=== PATIENT | female | born 1970 | race Caucasian/White ===

== ENCOUNTER 2017-03-15 10:35 | Emergency (ER) | payer MEDICARE, OTHER ==
[~2017-03-15] VITALS: Ht 170.2 cm; Wt 90.7 kg
[~2017-03-15 10:35] MED LIST: AMIT50; DIVA250ER; HYDACE5 PO; OLAN10; PROP20; RANI150; RISP3; SERT50; SULTRIDS PO; ZIPR40
[2017-03-15] MEDS ORDERED: HYDPAM100 PO (10:53)
[2017-03-15] MEDS ORDERED: Triamcinolone A15 G3 TOP (11:19)
== END 2017-03-15 11:31 | disposition home or self-care (01) ==
LOC: ER 10:35
DX: L25.9 Unspecified contact dermatitis, unspecified cause (principal); J45.909 Unspecified asthma, uncomplicated; F31.9 Bipolar disorder, unspecified; Z88.8 Allergy status to other drugs, medicaments and biological substances; Z79.899 Other long term (current) drug therapy; Z86.19 Personal history of other infectious and parasitic diseases
CPT/HCPCS: 99282

== ENCOUNTER 2017-05-25 05:23 | Emergency (ER) | payer MEDICARE, OTHER ==
[~2017-05-25] VITALS: Ht 170.2 cm; Wt 80.3 kg
[~2017-05-25 05:23] MED LIST changes: +HYDPAM100 PO; +Triamcinolone A15 G3 TOP
[2017-05-25] MEDS ORDERED: Ultram50 MG PO (06:37)
[2017-05-25] MEDS ORDERED: IBUP800 PO (06:37)
[2017-05-25] MEDS ORDERED: Nicoderm Cq1 EAC1 TD (06:43)
== END 2017-05-25 07:06 | disposition home or self-care (01) ==
LOC: ER 05:23
DX: R07.89 Other chest pain (principal); J45.909 Unspecified asthma, uncomplicated; F17.200 Nicotine dependence, unspecified, uncomplicated; Z88.8 Allergy status to other drugs, medicaments and biological substances; Z86.19 Personal history of other infectious and parasitic diseases
CPT/HCPCS: 71046; 99283

== ENCOUNTER → 2018-03-22 | Outpatient (CLI) | payer MEDICARE, OTHER ==
[~2018-03-22] MED LIST changes: +IBUP800 PO; +Nicoderm Cq1 EAC1 TD; +Ultram50 MG PO
[2018-03-22 13:05] LABS: U Amphetamine Screen Not Detected; U Barbituate Screen Not Detected; U Benzodiazapine Screen Not Detected; U Buprenorphine Screen Not Detected; U Cannabinoids Screen DETECTED; U Cocaine Screen Not Detected; U Methadone Screen Not Detected; U Methamphetamine Screen Not Detected; U Opiates Screen Not Detected; U Oxycodone Screen Not Detected; U Phencyclidine Screen Not Detected; U Propoxyphene Screen Not Detected
== END ==
LOC: LAB SHORT 12:26 → LAB 12:26
PROVIDERS: Nurse Practitioner Family
DX: Z51.81 Encounter for therapeutic drug level monitoring (principal); Z79.899 Other long term (current) drug therapy

== ENCOUNTER → 2018-05-21 | Outpatient (CLI) | payer MEDICARE, OTHER ==
[2018-05-25 16:08] LABS: HPV 16 Negative (Negative); HPV 18 Negative (Negative); HPV OTHER HR TYPES Negative (Negative)
== END ==
LOC: LAB SHORT 10:49 → LAB 10:49
PROVIDERS: Nurse Practitioner Family
DX: Z12.4 Encounter for screening for malignant neoplasm of cervix (principal); Z00.00 Encounter for general adult medical examination without abnormal findings
CPT/HCPCS: 87624; G0145

== ENCOUNTER → 2019-02-01 | Outpatient (CLI) | payer MEDICARE, OTHER ==
[2019-02-01 18:29] LABS: U Amphetamine Screen Not Detected; U Barbituate Screen Not Detected; U Benzodiazapine Screen Not Detected; U Buprenorphine Screen Not Detected; U Cannabinoids Screen Not Detected; U Cocaine Screen Not Detected; U Methadone Screen Not Detected; U Methamphetamine Screen Not Detected; U Opiates Screen Not Detected; U Oxycodone Screen Not Detected; U Phencyclidine Screen Not Detected; U Propoxyphene Screen Not Detected
== END | disposition home or self-care (01) ==
LOC: LAB SHORT 09:30 → LAB 09:30
PROVIDERS: Registered Nurse Psychiatric/Mental Health
DX: Z51.81 Encounter for therapeutic drug level monitoring (principal); Z79.899 Other long term (current) drug therapy

== ENCOUNTER 2020-06-14 10:42 | Emergency (ER) | payer MEDICARE, OTHER ==
[~2020-06-14] VITALS: Ht 170.2 cm; Wt 68.0 kg
[2020-06-14] MEDS ORDERED: PALI3TAB (11:07)
[2020-06-14] MEDS ORDERED: MIRT15 (11:07)
[2020-06-14] MEDS ORDERED: MIRALAX17 GM PO (13:56)
[2020-06-14] MEDS ORDERED: DOCU100 PO (13:56)
== END 2020-06-14 14:03 | disposition home or self-care (01) ==
LOC: ER 10:42
DX: K59.00 Constipation, unspecified (principal); F29 Unspecified psychosis not due to a substance or known physiological condition; Z88.8 Allergy status to other drugs, medicaments and biological substances; Z79.899 Other long term (current) drug therapy
CPT/HCPCS: 74018; 99283-25

== ENCOUNTER 2021-09-18 04:31 | Emergency (ER) | payer MEDICARE, OTHER ==
[~2021-09-18] VITALS: Ht 160 cm; Wt 63.5 kg
[~2021-09-18 04:31] MED LIST changes: +DOCU100 PO; +MIRALAX17 GM PO; +MIRT15; +PALI3TAB
== END 2021-09-18 06:36 | disposition home or self-care (01) ==
LOC: ER 04:31
DX: M79.601 Pain in right arm (principal); M62.830 Muscle spasm of back; F25.9 Schizoaffective disorder, unspecified; Z88.8 Allergy status to other drugs, medicaments and biological substances
CPT/HCPCS: 72170; 73030; 93005; 93010; A9270; J1885

== ENCOUNTER 2021-11-03 16:06 | Emergency (ER) | payer MEDICARE, OTHER ==
[~2021-11-03] VITALS: Ht 170.2 cm; Wt 79.8 kg
== END 2021-11-03 16:25 | disposition home or self-care (01) ==
LOC: ER 16:06
DX: Z23 Encounter for immunization (principal); S61.412A Laceration without foreign body of left hand, initial encounter; X58.XXXA Exposure to other specified factors, initial encounter; J45.909 Unspecified asthma, uncomplicated; F25.0 Schizoaffective disorder, bipolar type; F17.290 Nicotine dependence, other tobacco product, uncomplicated; Z88.8 Allergy status to other drugs, medicaments and biological substances; Z79.899 Other long term (current) drug therapy
CPT/HCPCS: 90714

== ENCOUNTER 2022-12-31 21:07 | Emergency (ER) | payer MEDICARE, OTHER ==
[~2022-12-31] VITALS: Ht 170.2 cm; Wt 74.8 kg
[~2022-12-31 21:07] MED LIST changes: +NARCAN4 M1
[2022-12-31 21:09] VITALS: BP 125/76
[2022-12-31] MEDS ORDERED: LITH300C PO (21:57)
== END 2022-12-31 21:58 | disposition home or self-care (01) ==
LOC: ER 21:07
DX: T42.4X1A Poisoning by benzodiazepines, accidental (unintentional), initial encounter (principal); F17.210 Nicotine dependence, cigarettes, uncomplicated
CPT/HCPCS: 99283